=== PATIENT | male | born 1955 | race Caucasian/White ===

== ENCOUNTER 2023-11-06 14:47 | Emergency (ER) | payer MEDICARE ==
[2023-11-06] MEDS ORDERED: Dexamethasone 4 mg/ml Vial ONE (15:15)
== END 2023-11-06 16:12 | disposition home or self-care (01) ==
LOC: NAV ERS 14:47
DX: J20.9 Acute bronchitis, unspecified (principal); J06.9 Acute upper respiratory infection, unspecified; I10 Essential (primary) hypertension; Z79.899 Other long term (current) drug therapy
CPT/HCPCS: 71046; 96372; J1100